=== PATIENT | female | born 1940 | race Caucasian/White ===

== ENCOUNTER 2018-09-29 06:34 | Emergency (ER) | payer MEDICARE, MEDICAID ==
[~2018-09-29] VITALS: Ht 157.5 cm; Wt 81.6 kg
--- OUTSIDE RECORDS SUMMARY | 2018-09-29 06:39 | XMS REPORT | Continuity of Care Document ---
Author Organization Unknown Address Unknown Allergies There is no data. Medications There is no data. Problems Date Dx Coded Attending Type Code Diagnosis Diagnosed By 01/13/2015 ALL COKER MD Ot 729.5 01/26/2015 ALL COKER MD Ot 729.5 Procedures There is no data. Results There is no data. Encounters ACCT No. Visit Date/Time Discharge Status Pt. Type Provider Facility Loc./Unit Complaint [id number] 12/18/2014 10:32:00 12/18/2014 23:59:59 CLS Outpatient ALL COKER MD [facility] [id number] 03/05/2013 13:43:00 03/05/2013 23:59:59 CLS Outpatient
--- OUTSIDE RECORDS SUMMARY | 2018-09-29 06:39 | XMS REPORT | Clinical Summary ---
Author Author [facility] Organization [facility] Address Unknown Phone Unavailable Care Team Providers Care Cell Plasterer Name Role Phone Gael Guan MD Unavailable Maxim Spivey MD PCP Jose Enrique Jarrett MD Unavailable Source Comments Some departments are not documenting in the electronic medical record. If you do not see the information that you expected, contact Release of Information in the Health Information Management department at [phone] for further assistance in locating additional records.[facility] Allergies Comments Active Allergy Reactions Severity Noted Date Amoxicillin-Pot NAUSEA AND 06/09/2011 Clavulanate VOMITING Hydrocodone STOMACH 05/05/2011 UPSET, NAUSEA AND VOMITING Raises blood pressure Iodinated Contrast- Oral SEE COMMENTS High 04/06/2011 And Iv Dye Medications End Date Status Medication Sig Dispensed Refills Start Date Active hydrochlorothiazide Take 25 mg by 0 (HYDRODIURIL) 25 mg mouth daily. tablet Active diltiazem CD (CARTIA XT) Take 300 mg 0 300 mg capsule by mouth daily. Active metFORMIN (GLUCOPHAGE) Take 500 mg 0 500 mg tablet by mouth twice daily with meals. Active glimepiride (AMARYL) 4 mg Take 4 mg by 0 tablet mouth twice daily. Active RABEprazole DR (+) Take 20 mg by 0 (ACIPHEX) 20 mg tablet mouth as Needed. Active potassium Take 10 mEq 0 by mouth daily. Active albuterol (VENTOLIN HFA, Inhale 2 0 PROAIR HFA) 90 Puffs by mcg/Actuation inhaler mouth every 6 hours as needed. Active insulin glargine (LANTUS) Inject 30 0 100 unit/mL injection Units into area(s) as directed at bedtime daily. Active amitriptyline (ELAVIL) 10 Take 10 mg by 0 mg tablet mouth at bedtime as needed. Active EUCALYPT/MEN/CAMPH/TURP/P Apply to 0 ET,WH (VICKS VAPORUB TP) affected area. 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 Basal cell carcinoma 05/04/2011 Family History Medical History Relation Name Comments Hypertension Mother Allergy-severe Neg Hx Anemia Neg Hx Anesthetic Complication Neg Hx Asthma Neg Hx Defect Neg Hx Blood Clots Neg Hx Diabetes Neg Hx Dizziness Neg Hx Growth/Development Neg Hx Disorders Hearing Loss Neg Hx Heart Attack Neg Hx High Cholesterol Neg Hx Migraines Neg Hx Seizures Neg Hx Stroke Neg Hx Relation Name Status Comments Mother Social History Date Tobacco Use Types Packs/Day Years Used Quit: 04/07/1982 Former Smoker 0.25 10 Smokeless Tobacco: Never Used Alcohol Use Drinks/Week oz/Week Comments No Sex Assigned at Date Recorded Not on file Industry Job Start Date Occupation Not on file Not on file Not on file Travel End Travel History Travel Start No recent travel history available. Last Filed Vital Signs Time Taken Vital Sign Reading 09/08/2011 9:43 AM CDT Blood Pressure 183/80 09/08/2011 9:43 AM CDT Pulse 83 04/09/2011 7:46 AM CDT Temperature 36.3 C (97.3 F) - Respiratory Rate - 04/09/2011 7:46 AM CDT Oxygen Saturation 94% - Inhaled Oxygen - Concentration 09/08/2011 9:43 AM CDT Weight 76.2 kg (168 lb) 09/08/2011 9:43 AM CDT Height 157.5 cm (5' 2") 09/08/2011 9:43 AM CDT Body Mass Index 30.73 Plan of Treatment Health Maintenance Due Date Last Done Comments PHYSICAL (COMPREHENSIVE) 1949 EXAM DTAP/TDAP VACCINES (1 - 1960 Tdap) SHINGLES RECOMBINANT 1992 VACCINE (1 of 2) OSTEOPOROSIS 2007 SCREENING/MONITORING PNEUMONIA (PCV13/PPSV23) 2007 VACCINES (1 of 2 - PCV13) INFLUENZA VACCINE 01/03/2019 Results Not on filefrom Last 3 Months Advance Directives For more information, please contact: [facility] [address] [place] [address] Date Inactivated Comments Code Status Date Activated 04/08/2011 6:03 PM Full Code 04/08/2011 3:06 PM Provider has discussed Code Status Yes w/Patient or Family?
--- NOTE | 2018-09-29 06:56 | ED Integumentary General ---
General Chief Complaint: Skin/Wound Problems Stated Complaint: RASH,BITES ON BOTTOM Source: patient Exam Limitations: no limitations History of Present Illness Date Seen by Provider: Sep 29, 2018 Time Seen by Provider: 06:39 Initial Comments Patient presents to ER by private conveyance with chief complaint of 3 days presently worsening burning knife stabbing pain in her right back and flank radiating around towards this right side. No injury fall. She thought was a bug bites that she called her doctor and he sent out a prescription for triamcinolone. She's been using that for the past couple days with no relief and she cannot get any sleep. Allergies and Home Medications Allergies Coded Allergies: No Known Drug Allergies (Unverified , 09/29/18) Patient Home Medication List Home Medication List Reviewed: Yes Review of Systems Review of Systems Constitutional: No chills, No diaphoresis EENTM: No hearing loss, No ear pain Respiratory: No cough, No short of breath Cardiovascular: No chest pain, No edema Past Zbogwtw-Ivqvua-Qckjgn Hx Patient Social History Alcohol Use: Denies Use Recreational Drug Use: No Smoking Status: Never a Smoker Recent Foreign Travel: No Contact w/Someone Who Travel: No Physical Exam Vital Signs Capillary Refill : General Appearance: WD/WN, mild distress HEENT: PERRL/EOMI, pharynx normal Neck: non-tender, full range of motion, normal inspection Cardiovascular: normal peripheral pulses, regular rate, rhythm Respiratory: normal breath sounds, no respiratory distress, no accessory muscle use Gastrointestinal: normal bowel sounds, non tender, soft Skin: other (erythematous rash with some small vesicles in a dermatomal fashion coming out from about T12-L1 radiating around the right flank.) Progress/Results/Core Measures Results/Orders My Orders Orders - JONATHAN HARVEY Ketorolac Injection (Toradol Injection) (09/29/18 07:00) Gabapentin Capsule/Tablet (Neurontin Cap (09/29/18 07:00) Progress Progress Note : Time: 06:53 Progress Note Toradol and gabapentin for her immediate discomfort and will send her out on some gabapentin, acyclovir and tramadol for breakthrough pain. Follow-up with primary care. Departure Impression Primary Impression: Shingles outbreak Qualified Codes: B02.9 - Zoster without complications Disposition: 01 HOME, SELF-CARE Condition: Stable Departure-Patient Inst. Decision time for Depature: 06:54 Referrals: ROHAN PINO MD (PCP/Family) Primary Care Physician Patient Instructions: Cami (DC) Add. Discharge Instructions: Please review the handout for some ideas how to manage your symptoms. Use Tylenol 1000 mg every 8 hours in addition to ibuprofen 800 mg every 8 hours as needed for pain. Start the acyclovir today to reduce the severity and longevity of your pain. You may use gabapentin 1 capsule every 8 hours as needed for pain but it may cause some drowsiness so be cautious. If you're still having tremendous amount of breakthrough pain use the tramadol 1 tablet every 6 hours. Tramadol will cause constipation and increase her drowsiness. Do not mix with alcohol. Follow-up next week with primary care for further management. All discharge instructions reviewed with patient and/or family. Voiced understanding. Scripts Gabapentin (Gabapentin) 100 Mg Capsule 100 MG PO Q8H for Neuropathic pain for 7 Days, #21 CAP 0 Refills Prov: JONATHAN HARVEY 09/29/18 Tramadol HCl (Tramadol HCl) 50 Mg Tablet 50 MG PO Q6H PRN for PAIN, #20 TAB 0 Refills Prov: JONATHAN HARVEY 09/29/18 Acyclovir (Acyclovir) 800 Mg Tablet 800 MG PO TID for 7 Days, #21 TAB 0 Refills Prov: JONATHAN HARVEY 09/29/18 JONATHAN HARVEY Sep 29, 2018 06:56
[2018-09-29] MEDS ORDERED: GABA-486 PO (06:57)
[2018-09-29] MEDS ORDERED: TRAM50TA2 PO (06:57)
[2018-09-29] MEDS ORDERED: ACYC800T PO (06:57)
[2018-09-29] MEDS ORDERED: GABAPENTIN 100 MG (NEURONTIN) CAP PO ONE (07:00)
[2018-09-29] MEDS ORDERED: KETOROLAC 60 MG/2 ML VIAL IM ONE (07:00)
[2018-09-29] MEDS ORDERED: GABAPENTIN 100 MG (NEURONTIN) CAP ONE (07:03)
[2018-09-29 07:23] VITALS: BP 152/87
== END 2018-09-29 07:23 | disposition home or self-care (01) ==
LOC: EDUNIT# 06:34 → ER 06:36
DX: B02.9 Zoster without complications (principal)
CPT/HCPCS: 99284

== ENCOUNTER 2018-10-10 06:33 | Emergency (ER) | payer MEDICARE, MEDICAID ==
[~2018-10-10] VITALS: Ht 157.5 cm; Wt 81.6 kg
[~2018-10-10 06:33] MED LIST: ACYC800T PO; GABA-486 PO; TRAM50TA2 PO
--- NOTE | 2018-10-10 06:59 | ED General ---
General Chief Complaint: General Problems/Pain Stated Complaint: SHINGLES Source of Information: Patient Exam Limitations: No Limitations History of Present Illness Date Seen by Provider: October 10, 2018 Time Seen by Provider: 06:46 Initial Comments Patient presents to ER with chief complaint of pain in her right hip secondary to her diagnosis of shingles about 2 weeks ago. She was put on gabapentin and tramadol and says that neither one of these are helping. She does not know the dose of gabapentin. She was started these medications by her primary care doctor. She does not take any anticholinergic, TCAs nor have a history of heart disease, glaucoma or seizure disorder. She says the pain is getting away from his sleep function or care for herself. She has not followed up with her primary care doctor yet. No fevers chills nausea neck rigidity, headache or vision changes. Allergies and Home Medications Allergies Coded Allergies: No Known Drug Allergies (Unverified , 09/29/18) Home Medications Acyclovir 800 Mg Tablet, 800 MG PO TID Prescribed by: JONATHAN HARVEY on 09/29/18 0657 Gabapentin 100 Mg Capsule, 100 MG PO Q8H Prescribed by: JONATHAN HARVEY on 09/29/18 0657 Tramadol HCl 50 Mg Tablet, 50 MG PO Q6H PRN for PAIN Prescribed by: JONATHAN HARVEY on 09/29/18 0657 Patient Home Medication List Home Medication List Reviewed: Yes Review of Systems Review of Systems Constitutional: No chills, No diaphoresis EENTM: No ear discharge, No ear pain Respiratory: No cough, No short of breath Cardiovascular: No chest pain, No edema Past Setdkpu-Baccdv-Ynlotd Hx Patient Social History Alcohol Use: Denies Use Recreational Drug Use: No Smoking Status: Never a Smoker 2nd Hand Smoke Exposure: No Recent Foreign Travel: No Contact w/Someone Who Travel: No Recent Hopitalizations: No Past Medical History Respiratory: No Cardiac: No Neurological: No Genitourinary: No Gastrointestinal: No Musculoskeletal: No Endocrine: No HEENT: No Integumentary: No Physical Exam Vital Signs Capillary Refill : Height, Weight, BMI Height: 5'2.00" Weight: 180lbs. oz. 81.808481xn; BMI Method:Stated General Appearance: Mild Distress, Other (disheveled) Eyes: Bilateral Eye Normal Inspection, Bilateral Eye PERRL, Bilateral Eye EOMI HEENT: PERRL/EOMI, Pharynx Normal, Moist Mucous Membranes Neck: Full Range of Motion, Normal Inspection Respiratory: Lungs Clear, Normal Breath Sounds, No Accessory Muscle Use, No Respiratory Distress Cardiovascular: Regular Rate, Rhythm, No Edema Extremity: Normal Capillary Refill, Normal Inspection, No Pedal Edema Neurologic/Psychiatric: Alert, Oriented x3, pumper gauger II-XII Norm as Tested Skin: Other (mild ecchymotic base on her right hip in a dermatomal pattern without any vesicles or evidence of active rash.) Progress/Results/Core Measures Suspected Sepsis SIRS Temperature: Pulse: Respiratory Rate: Blood Pressure / Mean: Results/Orders My Orders Orders - JONATHAN HARVEY Ketorolac Injection (Toradol Injection) (10/10/18 07:00) Vital Signs/I&O Capillary Refill : Progress Note : Time: 06:57 Progress Note Postherpetic neuralgia. She can increase her gabapentin usage since she's been on for 2 weeks so we instructed her to just double up. We will also start her on 10 mg of a TCA cautiously and have her follow up with primary care early next week. She can try Capsaicin topically. We will also give her a prescription for some viscous lidocaine to try topically for breakthrough pain. Starting anticholinergic on top of gabapentin would make us cautious to start opiates because of the risk of falls. We'll let her continue to use her tramadol. Departure Impression Primary Impression: Postherpetic neuralgia Disposition: 01 HOME, SELF-CARE Condition: Stable Departure-Patient Inst. Decision time for Depature: 06:59 Referrals: ROHAN PINO MD (PCP/Family) Primary Care Physician Patient Instructions: Shinsoy (DC) Add. Discharge Instructions: Your shingles are no longer active however you are experiencing the postherpetic neuralgia or pain can last for weeks or months after a shingles infection as the nerve heals. I would encourage to double up on your use of gabapentin unless it starts to causes you to become drowsy. You can still use Tylenol 1000 mg every 8 hours in addition to ibuprofen 800 mg every 8 hours. You should try topical creams with Capsaicin oil such as Salon Pas patches. We'll give you a prescription for viscous lidocaine that you can apply a small amount over the area that hurts every 4 hours as needed for breakthrough pain. We will also start a prescription of amitriptyline 10 mg at night that may help reduce her pain. Follow-up with your primary care provider early next week and discuss how these medications have worked for you and he can help you increase the doses if necessary. All discharge instructions reviewed with patient and/or family. Voiced understanding. Scripts Lidocaine (Lidocaine) 30 Gm Cream..g. 1 GM TP Q4H PRN for BREAKTHROUGH PAIN for 7 Days, #1 TUBE 0 Refills Prov: JONATHAN HARVEY 10/10/18 Capsaicin (Capsaicin Hot Patch) 1 Each Adh..patch 1 EACH TP DAILY for 14 Days, #14 PATCH 0 Refills Prov: JONATHAN HARVEY 10/10/18 Amitriptyline HCl (Amitriptyline HCl) 10 Mg Tablet 10 MG PO HS for 30 Days, #30 TAB 0 Refills Prov: JONATHAN HARVEY 10/10/18 Copy Copies To 1: ROHAN PINO MD, TITUS J October 10, 2018 06:59
[2018-10-10] MEDS ORDERED: KETOROLAC 60 MG/2 ML VIAL IM ONE (07:00)
[2018-10-10] MEDS ORDERED: AMIT10TA6 PO (07:15)
[2018-10-10] MEDS ORDERED: CAPS1ADH TP (07:15)
[2018-10-10] MEDS ORDERED: LIDO30CR44 TP (07:15)
[2018-10-10 07:19] VITALS: BP 179/99
== END 2018-10-10 07:19 | disposition home or self-care (01) ==
LOC: EDUNIT# 06:33 → ER 06:35
DX: B02.29 Other postherpetic nervous system involvement (principal); Z86.19 Personal history of other infectious and parasitic diseases
CPT/HCPCS: 96372; 99284

== ENCOUNTER 2019-11-18 07:28 | Emergency (ER) | payer MEDICARE, MEDICAID ==
[~2019-11-18] VITALS: Ht 165 cm; Wt 79.4 kg
[~2019-11-18 07:28] MED LIST changes: +AMIT10TA6 PO; +CAPS1ADH TP; +LIDO30CR44 TP; -TRAM50TA2 PO; +TRM50T PO
[2019-11-18] MEDS ORDERED: CALCIUM CHLORIDE 1 GM/10 ML (IMS) SYR INJ ONE (07:33)
[2019-11-18] MEDS ORDERED: MIDAZOLAM 5 MG/5 ML (VERSED) VIAL IJ ONE (07:33)
[2019-11-18] MEDS ORDERED: EPINEPHrine 0.1 MG/ML 10 ML (HOSPIRA) SYR IJ ONE (07:33)
[2019-11-18] MEDS ORDERED: ROCURONIUM 10 MG/ML 5 ML SYRINGE IV ONE (07:33)
[2019-11-18] MEDS ORDERED: ETOMIDATE IV SOLN 20 MG/10 ML VIAL IV ONE (07:33)
[2019-11-18] MEDS ORDERED: fentaNYL INJECTION 100 MCG/2 ML AMP INJ ONE (07:33)
[2019-11-18] MEDS ORDERED: SODIUM BICARB 8.4% 50 MEQ/50 ML (ABBOTT) SYR INJ ONE (07:33)
--- OUTSIDE RECORDS SUMMARY | 2019-11-18 07:36 | XMS REPORT ---
Author Author [employer] Organization [employer] Address [address] [address] Care Team Providers Care Heavy Equipment Service Technician Name Role Phone ROHAN PINO PCP JOHN PAUL CUELLAR, ALL Currie Unavailable Unavailable DMITRIY HARVEY Unavailable Unavailable Unavailable Unavailable Allergies Normalized Allergy Reported Date of Reaction(s) Care Provider Facility Allergy Type classification allergen Allergy Onset DA (5 Unclassified No Known Drug 09-29-2018 - no information [facility] Via sources.) Allergies , [facility] ([id number]) Medications Medication Ingredient Drug Dose Dates Status Sig Sig Care Class(es) (Normalized) (Original) Provid er acyclovir Acyclovir Herpesvirus 800 mg 09-30-19 Complete take 1 Acyclovir Edgar 800 mg oral Nucleoside 19 - d tablet by 800 Mg J tablet (2 Analog DNA 10-07-19 mouth three Tablet 800 Johanna sources.) Polymerase 19 times daily Mg ORAL (no Inhibitor, Three Times phone) Herpes A Day 7 Days Simplex 21 Tab Virus 09/29/18 Nucleoside Analog DNA Polymerase Inhibitor, Herpes Zoster Virus Nucleoside Analog DNA Polymerase Inhibitor amitriptyli Amitriptyli Tricyclic 10 mg 10-11-19 Complete take 1 Amitriptylin Dmitriy ne ne Antidepress 19 - d tablet by e Hcl 10 Mg J hydrochlori ant 11-10-19 mouth at Tablet 10 Mg Johanna de 10 mg 19 bedtime ORAL Bedtime (no oral tablet 30 Days 30 phone) (1 source.) Tab 10/10/18 no Capsaicin no 10-11-19 Complete apply 1 dose Capsaicin Dmitriy information (Capsaicin information 19 - d topically (Caps aicin J (1 source.) Hot Patch) 10-25-19 once daily, Hot Patch) 1 Wel ler 1 Each 19 then apply 1 Each (no Adh..patch dose Adh..patch 1 phone) topically Each TOPICAL Daily 14 Days 14 Patch 10/10/18 gabapentin gabapentin Anti-epilep 100 mg 09-30-19 Complete take 1 Gabapentin Dmitriy 100 mg oral tic Agent 19 - d capsule by 100 Mg J capsule (2 10-07-19 mouth every Capsule 100 Johanna sources.) 19 eight hours Mg ORAL (no for pain Every 8HRS phone) for Neuropathic Pain 7 Days 21 Cap 09/29/18 lidocaine Lidocaine Antiarrhyth 50 10-11-19 Complete apply 1 g Lidocaine 30 Edgar 50 mg/ml hussein, Amide mg/mL 19 - d topically Gm Cream..g. J topical Local 10-18-19 every four 1 Gm TOPICAL Johanna cream (1 Anesthetic 19 hours as Every 4HRS (no source.) needed for as needed phone) pain for Breakthrough Pain 7 Days 1 Tube 10/10/18 traMADol traMADol Opioid 50 mg 09-30-19 Complete take 1 Tramado l Hcl Dmitriy hydrochlori Agonist 19 d tablet by 50 Mg Tablet J de 50 mg mouth every 50 Mg ORAL Johanna oral tablet six hours as Every 6 (no (2 needed for Hours as phone) sources.) pain needed for Pain 20 Tab 09/29/18 Problems Active Problems Problem Normalized Date Last Normalized Normalized Provider Fa cility Classification Problem(s) Recorded Problem Problem Sta tus Duration Other Pain in limb Episodic Active ALL ODGERS [facility] V ia MD patti [facility] tissue disease [facility] - (2 sources.) [place] ([address]) Other skin Rash and other Episodic Active DMITRIY JOHANNA [facility] Via disorders (2 nonspecific [facility] sources.) skin eruption [facility] ([address]) Past or Other Problems Problem Normalized Date Last Normalized Normalized Provider Fa cility Classification Problem(s) Recorded Problem Problem Sta tus Duration Other Pain in right Episodic Completed DMITRIY JOHANNA [facility] V ia non-traumatic hip [facility] joint [facility] - disorders (3 [place] sources.) ([address]) Other Personal Episodic Completed DMITRIY JOHANNA [facility] Via infections; history of [facility] including other Hospital - parasitic (3 infectious and [place] sources.) 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 Immunizations Normalized Immunization Date Notes Care Provider Facili ty Immunization vaccine no information ROHAN PINO [address] [place] V ia Translations: [ [facility] vaccine] ([address]) Results The data below is from unstructured sourcesNo relevant diagnostic test, laboratory data and/or discharge summary information available.No relevant diagnostic test, laboratory data and/or discharge summary information available.No relevant diagnostic test, laboratory data and/or disc harge summary information available. Vital Signs The data below is from unstructured sources Vital Response Date/Time Temperature (Fahrenheit) 98.0 degree s F (97.6 - 99.5) 09/29/2018 6:40am Temperature (Calculated Celsius) 36. 86590 degrees C (36.4 - 37.5) 09/29/2018 6:40am Temperature Source Temporal 09/29/2018 6:40am Pulse Rate (adult) 104 bpm (60 - 90) 09/29/2018 6:40am Respiratory Rate 14 bpm (12 - 24) 09/29/2018 6:40am O2 Sat by Pulse Oximetry 98 % (88 - 100) 09/29/2018 6:40am Blood Pressure 178/92 mm Hg 09/29/2018 6:40am Blood Pressure Mean 120 mm Hg (65 - 110) 09/29/2018 6:40am Pain Numeric Pain Scale 8 6:40am Height (Feet) 5 feet 6:40am Height (Inches) 2.00 inches 09/29/2018 6:40am Height (Calculated Centimeters) 157. 579171 cm 09/29/2018 6:40am Weight (Pounds) 180 pounds 09/29/2018 6:40am Weight (Calculated Grams) 43751.63 gm 09/29/2018 6:40am Weight (Calculated Kilograms) 81.646 627 kilograms 09/29/2018 6:40am Weight Method Stated 6:40am Capillary Refill Capillary Refill Less Than 3 Seconds 09/29/2018 6:40am Height 5 ft 2 in 019 6:40am Weight 180 lb 09/29/2018 6:40am Body Mass Index 32.9 kg/m^2 09/29/2018 6:40am Vital Response Date/Time Temperature (Fahrenheit) 97.9 degree s F (97.6 - 99.5) 10/10/2018 6:45am Temperature (Calculated Celsius) 36. 17023 degrees C (36.4 - 37.5) 10/10/2018 6:45am Temperature Source Oral 10/10/2018 6:45am Pulse Rate (adult) 69 bpm (60 - 90) 10/10/2018 6:45am Respiratory Rate 20 bpm (12 - 24) 10/10/2018 6:45am O2 Sat by Pulse Oximetry 99 % (88 - 100) 09/29/2018 7:23am Blood Pressure 179/99 mm Hg 10/10/2018 6:45am Blood Pressure Mean 125 mm Hg (65 - 110) 10/10/2018 6:45am Pain Numeric Pain Scale 7 6:45am Height (Feet) 5 feet 01/2019 6:45am Height (Inches) 2.00 inches 10/10/2018 6:45am Height (Calculated Centimeters) 157. 985404 cm 10/10/2018 6:45am Height Method Stated 01/2019 6:45am Weight (Pounds) 180 pounds 10/10/2018 6:45am Weight (Calculated Grams) 99785.63 gm 10/10/2018 6:45am Weight (Calculated Kilograms) 81.646 627 kilograms 10/10/2018 6:45am Weight Method Stated 01/2019 6:45am Capillary Refill Capillary Refill Less Than 3 Seconds 10/10/2018 6:45am Height 5 ft 2 in 019 6:45am Weight 180 lb 10/10/2018 6:45am Body Mass Index 32.9 kg/m^2 10/10/2018 6:45am Vital Response Date/Time Temperature (Fahrenheit) 97.9 degree s F (97.6 - 99.5) 10/10/2018 6:45am Temperature (Calculated Celsius) 36. 97969 degrees C (36.4 - 37.5) 10/10/2018 6:45am Temperature Source Oral 10/10/2018 6:45am Pulse Rate (adult) 69 bpm (60 - 90) 10/10/2018 6:45am Respiratory Rate 20 bpm (12 - 24) 10/10/2018 6:45am O2 Sat by Pulse Oximetry 99 % (88 - 100) 09/29/2018 7:23am Blood Pressure 179/99 mm Hg 10/10/2018 6:45am Blood Pressure Mean 125 mm Hg (65 - 110) 10/10/2018 6:45am Pain Numeric Pain Scale 7 6:45am Height (Feet) 5 feet 01/2019 6:45am Height (Inches) 2.00 inches 10/10/2018 6:45am Height (Calculated Centimeters) 157. 851782 cm 10/10/2018 6:45am Height Method Stated 01/2019 6:45am Weight (Pounds) 180 pounds 10/10/2018 6:45am Weight (Calculated Grams) 50841.63 gm 10/10/2018 6:45am Weight (Calculated Kilograms) 81.646 627 kilograms 10/10/2018 6:45am Weight Method Stated 01/2019 6:45am Capillary Refill Capillary Refill Less Than 3 Seconds 10/10/2018 6:45am Height 5 ft 2 in 019 6:45am Weight 180 lb 10/10/2018 6:45am Body Mass Index 32.9 kg/m^2 10/10/2018 6:45am Interventions No Information Plan of Treatment The data below is from unstructured sources Discharge Date 09/29/18 7:23am Disposition 01 HOME, SELF-CARE Condition at Discharge Stable Instructions/Education Provided Jamshid PATE) Prescriptions See Medication Section Referrals ROHAN PINO MD Order Date: Primary Care Physician Address: [address] [place] [id number] Additional Instructions/Education Pl ease review the handout for some ideas how to manage your symptoms. Use Tylenol 1000 mg every 8 hours in addition to ibuprofen 800 mg every 8 hours as needed for pain. Start the acyclovir today to reduce the severity and longevity of your pain. You may use gabapentin 1 capsule every 8 hours as needed for pain but it may cause some drowsiness so be cautious. If you're still having tremendous amount of breakthrough pain use the tramadol 1 tablet every 6 hours. Tramadol will cause constipation and increase her drowsiness. Do not mix with alcohol. Follow-up next week with primary care for further management. All discharge instructions reviewed with patient and/or family. Voiced understanding. Discharge Date 10/10/18 7:19am Disposition 01 HOME, SELF-CARE Condition at Discharge Stable Instructions/Education Provided Jamshid gles (DC) Prescriptions See Medication Section Referrals ROHAN PINO MD Order Date: Primary Care Physician Address: [address] [place] [address] Additional Instructions/Education Yo ur shingles are no longer active however you are experiencing the postherpetic neuralgia or pain can last for weeks or months after a shingles infection as the nerve heals. I would encourage to double up on your use of gabapentin unless it starts to causes you to become drowsy. You can still use Tylenol 1000 mg every 8 hours in addition to ibuprofen 800 mg every 8 hours. You should try topical creams with Capsaicin oil such as Salon Pas patches. We'll give you a prescription for viscous lidocaine that you can apply a small amount over the area that hurts every 4 hours as needed for breakthrough pain. We will also start a prescription of amitriptyline 10 mg at night that may help reduce her pain. Follow-up with your primary care provider early next week and discuss how these medications have worked for you and he can help you increase the doses if necessary. All discharge instructions reviewed with patient and/or family. Voiced understanding. 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 I would encourage to double up on your use of gabapentin unless it starts to causes you to become drowsy. You can still use Tylenol 1000 mg every 8 hours in addition to ibuprofen 800 mg every 8 hours. You should try topical creams with Capsaicin oil such as Salon Pas patches. We'll give you a prescription for viscous lidocaine that you can apply a small amount over the area that hurts every 4 hours as needed for breakthrough pain. We will also start a prescription of amitriptyline 10 mg at night that may help reduce her pain. Follow-up with your primary care provider early next week and discuss how these medications have worked for you and he can help you increase the doses if necessary. All discharge instructions reviewed with patient and/or family. Voiced understanding. Goals No Information Social History Normalized Code Original Code Date Value no information no information no information Never smoked to bacco (finding) Functional Status The data below is from unstructured sourcesNo functional status information available.No functional status information available.No functional status information available. Mental Status No Information Encounters Encounter Normalized Encounter Encounter Diagnosis Care Provi chelsey Organization Date Type 10-10-2018 Emergency department no information [facility] no organization name - patient visit Phone: 10-10-2018 10-10-2018 Emergency department no information no name no organization name - patient visit 10-10-2018 09-29-2018 Emergency department no information [facility] no organization name - patient visit Phone: 09-29-2018 [facility] 10-10-2018 Patient encounter no information no name no or ganization name procedure 09-29-2018 Patient encounter no information no name no or ganization name procedure 12-18-2014 Patient encounter no information no name no or ganization name procedure Medical Equipment No Information Payers Normalized Payer Value Medicaid [id number] ([id number]) Medicare [id number] ([id number]) Advance Directives Directive Response Recor ded Date/Time Advance Directives No 6:40am Resuscitation Status Full Code 09/29/18 6:40am Directive Response Recor ded Date/Time Advance Directives No 6:45am Resuscitation Status Full Code 10/10/18 6:45am Chief Complaint and Reason for Visit Chief Complaint Skin/Wound Problems Reason for Visit [id number] Chief Complaint General Problems/Anastacio n Reason for Visit Postherpetic neural yuli Discharge Instructions No hospital discharge instruction information available.No hospital discharge instruction information available. Additional Source Comments This clinical document has been generated using [employer] software that has been certified by the Office of the National Coordinator for Health Information Technology (ONC 15.99.04.3023.Diam.31.00.0.536436) and the National Committee for C Developer (NCQA, as an eMeasure certified technology). FOR RECORDS PERTAINING TO PATIENTS WHO ARE OR HAVE BEEN ENROLLED IN A CHEMICAL D EPENDENCY/SUBSTANCE ABUSE PROGRAM, SOME INFORMATION MAY BE OMITTED. This clinica l summary was aggregated from multiple sources. Caution should be exercised in using it in the provision of clinical care. This summary normalizes information from multiple sources, and as a consequence, information in this document may ma terially change the coding, format and clinical context of patient data. In maria elena tion, data may be omitted in some cases. CLINICAL DECISIONS SHOULD BE BASED ON T HE PRIMARY CLINICAL RECORDS. [employer] provides no warranty or guara ntee of the accuracy or completeness of information in this document.The followi ng information is based on time limited clinical information
--- OUTSIDE RECORDS SUMMARY | 2019-11-18 07:36 | XMS REPORT | Clinical Summary ---
Author Author [facility] Organization [facility] Address Unknown Phone Unavailable Care Team Providers Care Cylinder Tester Name Role Phone Gael Guan MD Unavailable Maxim Spivey MD PCP Jose Enrique Jarrett MD Unavailable Source Comments Some departments are not documenting in the electronic medical record. 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 Last Filed Vital Signs Reading Time Taken Comments Vital Sign 183/80 09/08/2011 9:43 AM CDT Blood Pressure 83 09/08/2011 9:43 AM CDT Pulse 36.3 C (97.3 F) 04/09/2011 7:46 AM CDT Temperature - - Respiratory Rate 94% 04/09/2011 7:46 AM CDT Oxygen Saturation - - Inhaled Oxygen Concentration 76.2 kg (168 lb) 09/08/2011 9:43 AM CDT Weight 157.5 cm (5' 2") 09/08/2011 9:43 AM CDT Height 30.73 09/08/2011 9:43 AM CDT Body Mass Index Plan of Treatment Health Maintenance Due Date Last Done Comments DTAP/TDAP VACCINES (1 - 1960 Tdap) HEPATITIS C SCREENING 1960 PHYSICAL (COMPREHENSIVE) 1960 EXAM SHINGLES RECOMBINANT 1992 VACCINE (1 of 2) OSTEOPOROSIS 2007 SCREENING/MONITORING PNEUMONIA (PPSV23) 2007 VACCINE (1 of 1 - PPSV23) INFLUENZA VACCINE 03/05/2020 Results Not on filefrom Last 3 Months Advance Directives Date Inactivated Comments Code Status Date Activated 04/08/2011 6:03 PM Full Code 04/08/2011 3:06 PM Provider has discussed Code Status Yes w/Patient or Family?
--- OUTSIDE RECORDS SUMMARY | 2019-11-18 07:37 | XMS REPORT | Continuity of Care Document ---
Author Organization Unknown Address Unknown Phone Unavailable Allergies Active Description Code Type Severity Reaction Onset Reported/Identified Relationship to Patient Clinical Status Yes No Known Drug Allergies [id number] Drug Allergy Unknown N/A 09/29/2018 Medications There is no data. Problems Date Dx Coded Attending Type Code Diagnosis Diagnosed By 01/13/2015 ALL COKER MD Ot 729 .5 01/26/2015 ALL COKER MD Ot 729 .5 09/29/2018 ALL COKER MD Ot 729 .5 PAIN IN LIMB 09/29/2018 ALL COKER MD Ot 729 .5 PAIN IN LIMB 09/29/2018 JONATHAN HARVEY MD Ot B02. 9 ZOSTER WITHOUT COMPLICATIONS 09/29/2018 JONATHAN HARVEY MD Ot R21 RASH AND OTHER NONSPECIFIC SKIN ERUPTION 10/01/2018 JONATHAN HARVEY MD Ot B02. 9 ZOSTER WITHOUT COMPLICATIONS 10/01/2018 JONATHAN HARVEY MD Ot R21 RASH AND OTHER NONSPECIFIC SKIN ERUPTION 10/10/2018 JONATHAN HARVEY MD Ot B02. 29 OTHER POSTHERPETIC NERVOUS SYSTEM INVOLV 10/10/2018 JONATHAN HARVEY MD Ot M25.551 PAIN IN RIGHT HIP 10/10/2018 JONATHAN HARVEY MD Ot Z86. 19 PERSONAL HISTORY OF OTHER INFECTIOUS AND 10/12/2018 JONATHAN HARVEY MD Ot B02. 29 OTHER POSTHERPETIC NERVOUS SYSTEM INVOLV 10/12/2018 JONATHAN HARVEY MD Ot M25.551 PAIN IN RIGHT HIP 10/12/2018 JONATHAN HARVEY MD Ot Z86. 19 PERSONAL HISTORY OF OTHER INFECTIOUS AND Procedures There is no data. Results There is no data. Encounters ACCT No. Visit Date/Time Discharge Status Pt. Type Provider Facility Loc./Unit Complaint [id number] 10/10/2018 06:35:00 019 07:19:00 DIS Emergency JONATHAN HAVREY MD [facility] ER SHINGLES [id number] 09/29/2018 06:36:00 019 07:23:00 DIS Emergency CANDICE CUELLAR, JONATHAN Ba [facility] ER RASH,BITES ON BOTTOM [id number] 12/18/2014 10:32:00 015 23:59:59 CLS Outpatient JOHN PAUL CUELLAR, ALL Currie [facility] RAD PAIN IN [place]ES WHEN WAL NOAM [id number] 03/05/2013 13:43:00 013 23:59:59 CLS Outpatient
[2019-11-18] MEDS ORDERED: ASPIRIN 81 MG CHEW (CHILDREN'S ASA) ONE (07:39)
[2019-11-18] MEDS ORDERED: NS IV 1000 ML 2,000 ML ONE (07:39)
[2019-11-18] MEDS ORDERED: NS IV 1000 ML 1,000 ML IV SCH (07:41)
[2019-11-18] MEDS ORDERED: NS IV 1000 ML 1,000 ML IV ONE (07:41)
[2019-11-18] MEDS ORDERED: NITROGLYCERIN 0.4 MG SL TABS BTL 25'S SL PRN (07:45)
[2019-11-18] MEDS ORDERED: ASPIRIN 81 MG CHEW (CHILDREN'S ASA) PO ONE (07:45)
[2019-11-18 08:18] LABS: BASOPHILS % (AUTO) 0 % (0-10); EOSINOPHILS # (AUTO) 0.1 10^3/uL (0.0-0.3); EOSINOPHILS % (AUTO) 0 % (0-10); HEMATOCRIT 41 % (35-52); HEMOGLOBIN 13.4 G/DL (11.5-16.0); LYMPHOCYTES # (AUTO) 2.4 X 10^3 (1.0-4.0); LYMPHOCYTES % (AUTO) 10 % (12-44); MEAN CORPUSCULAR HEMOGLOBIN 27 PG (25-34); MEAN CORPUSCULAR HGB CONC 32 G/DL (32-36); MEAN CORPUSCULAR VOLUME 82 FL (80-99); MEAN PLATELET VOLUME 12.1 FL (7.4-10.4); MONOCYTES # (AUTO) 1.6 X 10^3 (0.0-1.0); MONOCYTES % (AUTO) 7 % (0-12); NEUTROPHILS # (AUTO) 20.7 X 10^3 (1.8-7.8); NEUTROPHILS % (AUTO) 84 % (42-75); PLATELET COUNT 216 10^3/uL (130-400); RED CELL DISTRIBUTION WIDTH 15.4 % (10.0-14.5); WHITE BLOOD COUNT 24.8 10^3/uL (4.3-11.0)
[2019-11-18 08:41] LABS: NEUTROPHILS % (MANUAL) 78 %
[2019-11-18 08:42] LABS: ANISOCYTOSIS SLIGHT; BAND NEUTROPHILS 6 %; BASOPHILS % (MANUAL) 1 %; EOSINOPHILS % (MANUAL) 0 %; LYMPHOCYTES % (MANUAL) 11 %; MONOCYTES % (MANUAL) 4 %
[2019-11-18] MEDS ORDERED: HEParin (CATH LAB) 2,000 ML IV ONE (08:45)
[2019-11-18] MEDS ORDERED: NITRO DRIP 25000 MCG/D5W 250 ML IV ONE (08:45)
[2019-11-18] MEDS ORDERED: NS IV 1000 ML 1,000 ML ONE (08:45)
[2019-11-18] MEDS ORDERED: LIDOCAINE 1% INJ 20 ML 20 ML VIAL ONE (08:45)
[2019-11-18 08:46] LABS: BILIRUBIN,TOTAL 1.2 MG/DL (0.1-1.0); CALCIUM 8.6 MG/DL (8.5-10.1); CREATININE SERUM 1.52 MG/DL (0.60-1.30); MAGNESIUM 2.3 MG/DL (1.6-2.4); POTASSIUM 4.4 MMOL/L (3.6-5.0); TOTAL PROTEIN 6.9 GM/DL (6.4-8.2)
--- NOTE | 2019-11-18 09:01 | ED Chest Pain ---
General Chief Complaint: Chest Pain Stated Complaint: STEMI Nursing Triage Note: pt to rm 5 by wheelchair with complaint of cp and soa. started this morning at 4 am. Nursing Sepsis Screen: No Definite Risk Source: patient Exam Limitations: clinical condition History of Present Illness Date Seen by Provider: Nov 18, 2019 Time Seen by Provider: 07:28 Initial Comments Patient presents in severe respiratory distress complains of chest pain shortness of air. Says she is a diabetic. He is very little other history. Spoke to her son, over the phone who brought her to the ER. He says he went to drink his morning cup of coffee with her at her house and noted she was clutching her chest complaining of chest pain but no complaint of shortness of breath. He drove her up here. She has no personal history of heart disease but she does have high blood pressure, hyperlipidemia, diabetes and family history of strong coronary disease. 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 Allergies and Home Medications Allergies Coded Allergies: No Known Drug Allergies (Unverified , 09/29/18) Home Medications Acyclovir 800 Mg Tablet, 800 MG PO TID Prescribed by: JONATHAN HARVEY on 09/29/18 0657 Amitriptyline HCl 10 Mg Tablet, 10 MG PO HS Prescribed by: JONATHAN HARVEY on 10/10/18 0715 Capsaicin 1 Each Adh..patch, 1 EACH TP DAILY Prescribed by: JONATHAN HARVEY on 10/10/18 0715 Gabapentin 100 Mg Capsule, 100 MG PO Q8H Prescribed by: JONATHAN HARVEY on 09/29/18 0657 Lidocaine 30 Gm Cream..g., 1 GM TP Q4H PRN for BREAKTHROUGH PAIN Prescribed by: JONATHAN HARVEY on 10/10/18 0715 Tramadol HCl 50 Mg Tablet, 50 MG PO Q6H PRN for PAIN Prescribed by: JONATHAN HARVEY on 09/29/18 0657 Patient Home Medication List Home Medication List Reviewed: Yes Review of Systems Review of Systems Constitutional: see HPI (history of present illness severely limited due to the patient's inability to say more than one word); No fever Respiratory: Shortness of Air Cardiovascular: Chest Pain Past [id number]-Noqibd Hx Patient Social History Alcohol Use: Denies Use Recreational Drug Use: No Smoking Status: Unknown if Ever Smoked 2nd Hand Smoke Exposure: No Recent Foreign Travel: No Contact w/Someone Who Travel: No Recent Infectious Disease Expo: No Recent Hopitalizations: No Immunizations Up To Date Tetanus Booster (TDap): Unknown PED Vaccines UTD: Yes Seasonal Allergies Seasonal Allergies: No Past Medical History Surgeries: Yes Section, Hysterectomy Respiratory: No Cardiac: Yes Hypertension Neurological: No Genitourinary: No Gastrointestinal: No Musculoskeletal: No Endocrine: Yes Diabetes, Non-Insulin dep HEENT: No Psychosocial: No Integumentary: No Blood Disorders: No Physical Exam Vital Signs Vital Signs - First Documented 11/18/19 07:28 Temp 34.0 Pulse 106 Resp 35 B/P (MAP) 121/72 (88) Pulse Ox 96 O2 Delivery Room Air Capillary Refill : Less Than 3 Seconds Height, Weight, BMI Height: 5'2.00" Weight: 180lbs. oz. 81.222582kq; 29.00 BMI Method:Stated General Appearance: Severe Distress HEENT: PERRL/EOMI; No Pharynx Normal, No Moist Mucous Membranes Neck: Full Range of Motion, Normal Inspection, Non Tender, Supple Respiratory: Lungs Clear, Accessory Muscle Use, Respiratory Distress (Kussmaul) Cardiovascular: No Edema, Normal Peripheral Pulses, Other (acrocyanosis and mottling extremities) Gastrointestinal: Normal Bowel Sounds, Non Tender, Soft Extremity: Non Tender, No Calf Tenderness Neurologic/Psychiatric: Alert, Other (oriented to person and place but not time or situation) Skin: Cyanosis, Diaphoresis, Mottled Critical Care Note Critical Care Start Time: 07:30 Stop Time: 08:30 Total Time (minutes) 60 minutes Date of : Nov 18, 2019 Time of : 08:17 Progress Blood glucose was over 500 and she had Kussmaul and it was suspected that she was in diabetic ketoacidosis. She complained of chest pain and EKG demonstrated acute CA in her anterior branch. Cardiology was notified. Sld Inclusion Teacher was called. Additional nursing staff came to the ER for help. Respiratory therapy was summonsed to help intubate the patient. Patient was adamant she did not want to be intubated initially so we attempted CPAP which she would not tolerate and kept pushing off. Within tried using [id number] and prepared her for intubation. We discussed the case with her son and he said that he thought it would be within her wishes to be intubated. The patient was no longer verbal. Using 20 mg of etomidate she became sedated and we used 50 mg of rocuronium. Once she was paralyzed we got her bagged up to 97% on 100% FiO2. Single attempt was made using video laryngoscopy and easily passed a 7.5 endotracheal tube across to her vocal cords. The tube was secured at 23 at the gums. She fogged the tube on expiration as well as she had color change of the capnography paper. End-tidal CO2 was 30. Bilateral breath sounds were audible with auscultation and symmetric. She had no breath sounds over the epigastric region. Plaza catheter and NG tube were placed topically by nursing and an x-ray was called for. Blood pressure became very poor from 120s down to the 80-90 systolic range so the patient was placed in Trendelenburg and initiated on Levophed 0.1 mcg/kg/m. This brought her blood pressure back up. IV fluids were initiated. Ventilator was initiated with a tidal volume of 450 mL, PEEP 5 cm water pressure, 20 respiratory rate and FiO2 100%. We're having a difficult time due to her mottlin g and acrocyanosis getting a reliable oxygen saturation so ABG was obtained. First attempt at right sided central line was made. In the middle the central line in the patient's end-tidal drop down to 12 and her heart rate began to bradycardia down from 120s into the 80s then 50s. Half a milligram of epinephrine was given and Levophed which was earlier initiated at 0.1 mcg/kg/m was turned up to 1 g per kilogram per minute. 2 bags of IV fluids and 2 large- bore IVs peripherally were already running at [facility]. No pulses palpable so CPR was initiated. Ventilator was discontinued and ventilation was applied aggressively. 0817: High quality CPR with a milligram of epinephrine was delivered. Amp of bicarbonate 0818. Calcium chloride 0818 First pulse check at 0819 demonstrated PEA and CPR was continued. Another dose of epinephrine was given. 0822 pulse check demonstrated PEA and CPR was resumed. 0824 epinephrine was given and family was notified via phone of the very poor prognosis. They're invited to come the ER. Her son Christiansen he was waiting for his brother to show up and they would come up together. Technician Inventory Specialist was called. 0827 another dose of epinephrine was given 08: Check for pulse did not reveal pulse and the patient had disorganized asystole. No shockable rhythm. Code was called. Suspected cause of related to being in diabetic ketoacidosis as well as acute CA. Likely anterior, LAD. COVID swab that had originally been collected was sent for processing. Progress/Results/Core Measures Results/Orders Lab Results Laboratory Tests Test 11/18/19 07:35 11/18/19 07:47 11/18/19 08:02 Range/Units Glucometer 537 *H 70-110 MG/DL White Blood Count 24.8 H 4.3-11.0 10^3/uL Red Blood Count 5.03 4.35-5.85 10^6/uL Hemoglobin 13.4 11.5-16.0 G/DL Hematocrit 41 35-52 % Mean Corpuscular Volume 82 80-99 FL Mean Corpuscular Hemoglobin 27 25-34 PG Mean Corpuscular Hemoglobin Concent 32 32-36 G/DL Red Cell Distribution Width 15.4 H 10.0-14.5 % Platelet Count 216 130-400 10^3/uL Mean Platelet Volume 12.1 H 7.4-10.4 FL Neutrophils (%) (Auto) 84 H 42-75 % Lymphocytes (%) (Auto) 10 L 12-44 % Monocytes (%) (Auto) 7 0-12 % Eosinophils (%) (Auto) 0 0-10 % Basophils (%) (Auto) 0 0-10 % Neutrophils # (Auto) 20.7 H 1.8-7.8 X 10^3 Lymphocytes # (Auto) 2.4 1.0-4.0 X 10^3 Monocytes # (Auto) 1.6 H 0.0-1.0 X 10^3 Eosinophils # (Auto) 0.1 0.0-0.3 10^3/uL Basophils # (Auto) 0.0 0.0-0.1 10^3/uL Neutrophils % (Manual) 78 % Lymphocytes % (Manual) 11 % Monocytes % (Manual) 4 % Eosinophils % (Manual) 0 % Basophils % (Manual) 1 % Band Neutrophils 6 % Anisocytosis SLIGHT Sodium Level 134 L 135-145 MMOL/L Potassium Level 4.4 3.6-5.0 MMOL/L Chloride Level 102 98-107 MMOL/L Carbon Dioxide Level 9 *L 21-32 MMOL/L Anion Gap 23 H 5-14 MMOL/L Blood Urea Nitrogen 25 H 7-18 MG/DL Creatinine 1.52 H 0.60-1.30 MG/DL Estimat Glomerular Filtration Rate 33 BUN/Creatinine Ratio 16 Glucose Level 629 *H 70-105 MG/DL Calcium Level 8.6 8.5-10.1 MG/DL Corrected Calcium 8.6 8.5-10.1 MG/DL Magnesium Level 2.3 1.6-2.4 MG/DL Total Bilirubin 1.2 H 0.1-1.0 MG/DL Aspartate Amino Transf (AST/SGOT) 112 H 5-34 U/L Alanine Aminotransferase (ALT/SGPT) 59 H 0-55 U/L Alkaline Phosphatase 133 40-136 U/L Myoglobin 995.9 H 10.0-92.0 NG/ML Troponin I 7.972 *H <0.028 NG/ML B-Type Natriuretic Peptide 703.9 H <100.0 PG/ML Total Protein 6.9 6.4-8.2 GM/DL Albumin 4.0 3.2-4.5 GM/DL Lipase 20 8-78 U/L My Orders Orders - JONATHAN HARVEY Continuous Ekg Monitoring (11/18/19 07:36) Ekg Tracing (11/18/19 07:36) Accucheck Stat ONCE (11/18/19 07:36) Ns Iv 1000 Ml (Sodium Chloride 0.9%) (11/18/19 07:39) Aspirin Chewable Tablet (Baby Aspirin Ch (11/18/19 07:39) Cbc With Automated Diff (11/18/19 07:41) Magnesium (11/18/19 07:41) Comprehensive Metabolic Panel (11/18/19 07:41) Myoglobin Serum (11/18/19 07:41) Protime With Inr (11/18/19 07:41) Partial Thromboplastin Time (11/18/19 07:41) O2 (11/18/19 07:41) Monitor-Rhythm Ecg Trace Only (11/18/19 07:41) Lipid Panel (11/19/19 06:00) Ed Iv/Invasive Line Start (11/18/19 07:41) Lipase (11/18/19 07:41) BNP (11/18/19 07:41) Troponin I (11/18/19 07:41) Nitroglycerin 0.4 Mg Btl 25's (Nitrostat (11/18/19 07:45) Aspirin Chewable Tablet (Baby Aspirin Ch (11/18/19 07:45) Ed Iv/Invasive Line Start (11/18/19 07:41) Ns Iv 1000 Ml (Sodium Chloride 0.9%) (11/18/19 07:41) Ns Iv 1000 Ml (Sodium Chloride 0.9%) (11/18/19 07:41) Arterial Blood Gas (11/18/19 07:46) Coronavirus Sars-Cov-2 So 2018 (11/18/19 07:46) Manual Differential (11/18/19 08:02) Calcium Chloride 10% Injection (Calcium (11/18/19 07:33) Epinephrine Emergency Syringe (Epinephr (11/18/19 07:33) Sodium Bicarbonate 8.4% Syr (Sodium Bica (11/18/19 07:33) Etomidate Injection (Amidate Injection) (11/18/19 07:33) Fentanyl Injection (Sublimaze Injection (11/18/19 07:33) Midazolam Injection (Versed Injection) (11/18/19 07:33) Rocuronium 5 Ml Syringe (Rocuronium 5 Ml (11/18/19 07:33) Medications Given in ED Current Medications Medications Dose Ordered Sig/Larissa Route Start Time Stop Time Status Last Admin Dose Admin Aspirin 324 mg ONCE ONCE PO 11/18/19 07:45 11/18/19 07:46 DC 11/18/19 07:44 324 MG Sodium Chloride 1,000 ml @ 0 mls/hr Q0M ONCE IV 11/18/19 07:41 11/18/19 07:44 DC 11/18/19 07:44 0 MLS/HR Vital Signs/I&O 11/18/19 07:28 Temp 34.0 Pulse 106 Resp 35 B/P (MAP) 121/72 (88) Pulse Ox 96 O2 Delivery Room Air Blood Pressure Mean: 88 Progress Progress Note : Time: 08:45 Progress Note Son RACHEL and his brother were allowed to come back and be with the body. We spoke them on the phone before intubation, during CPR and then after CPR was called left a voicemail and they called back within about 5 minutes. Questions were answered. Initial ECG Impression Date: Nov 18, 2019 Initial ECG Impression Time: 07:29 Initial ECG Rate: 115 Initial ECG Rhythm: S.Tach Initial ECG Intervals: QT (565) Initial ECG Impression: Acute CA Comment Significant ST elevation in the anterior leads V1, V2 and V3. Consults : Consulting Physician: Eros KRAMER MD Consults Notes 0730: Spoke with Dr. Kramer on the phone and Senokot. EKG per his review. He has to reactivate the Sld Inclusion Teacher. Patient was given aspirin to chew and swallow. Nitroglycerin was ordered Departure Communication (PCP) 0835: Notified PCP, Dr. Primitivo Pino. Impression Primary Impression: Acute myocardial infarction Qualified Codes: I21.02 - ST elevation (STEMI) myocardial infarction involving left anterior descending coronary artery Additional Impressions: DKA, type 2 Qualified Codes: E11.10 - Type 2 diabetes mellitus with ketoacidosis without coma; Z79.4 - intermediate frame tender (current) use of insulin Cardiopulmonary arrest Unsuccessful cardiopulmonary resuscitation Disposition: 20 Condition: Departure-Patient Inst. Referrals: PRIMITIVO PINO MD (PCP/Family) Primary Care Physician JONATHAN HARVEY Nov 18, 2019 09:01
--- NOTE | 2019-11-18 09:52 | NUR ---
0751- 93.3F AXILLARY TEMP 0752- PT BEING PREOXYGENTATED BY BVM 0753- 20 MG ETOMIDATED 0754- 50 CARTER ADMINISTERED 0756- 16FR MONTERO 0757- FIRST ATTEMPT AT INTUBATION, SUCCESSFUL. 7.5 ETT, 23 @ THE GUMS, POSITVE COLOR CHANGE, BILATERAL BREATH SOUNDS 0759- 16FR OG TUBE INSERTED 0801- PT PLACED ON VENTILATOR 0801- 100MCG FENTANYL, 3MG VERSED ADMINISTERED 0808- LEVOPHED STARTED AT 1MCG/KG/MIN 0813- 0.5MG EPI ADMINISTERED 0817- NO PULSE PALPATED, CPR INITIATED 0817- 1 MG EPI ADMINISTERED 0818- 1 AMP OF BICARB 0819- PULSE CHECK, NO PULSE. PEA, CPR CONTINUED 0820- 1 MG EPI 0822- PULSE CHECK, NO PULSE, PEA. CPR CONTINUED 0823- CALCIUM CHLORIDE ADMINISTERED 0824- 1 MG EPI 0824- FAMILY CALLED AND NOTIFIED BY DR HARVEY OF PATIENTS STATUS 0826- PULSE CHECK, NO PULSE. CPR CONTINUED 0827- 1 MG EPI 0829- PULSE CHECK, NO PULSE. CPR CONTINUED 0830- NO HEART SOUNDS ASCULTATED. CODE CEASED. TOD CALLED.
[2019-11-18 13:00] VITALS: BP 0/0
== END 2019-11-18 13:00 | disposition expired ==
LOC: EDUNIT# 07:30 → ER 07:32 → CATH 07:53 → ER 13:00
DX: I21.9 Acute myocardial infarction, unspecified (principal); I46.8 Cardiac arrest due to other underlying condition; E11.10 Type 2 diabetes mellitus with ketoacidosis without coma; I10 Essential (primary) hypertension
CPT/HCPCS: 31500; 51702; 80053; 82962; 83690; 83735; 83874; 83880; 84484; 85007; 85027; 93005; 93041; 99291; U0002; 36415; 87635